=== PATIENT | female | born 1945 | race Caucasian/White ===

== ENCOUNTER 2017-10-08 07:19 | Inpatient (IN) | payer MEDICARE, BC ==
[~2017-10-08] VITALS: Ht 165.1 cm; Wt 68.0 kg
[2017-10-08] MEDS ORDERED: ONDANSETRON 4 MG/2 ML VIAL IM ONE (07:30)
[2017-10-08] MEDS ORDERED: HYDROMORPHONE 1 MG/1 ML DISP.SYRIN IM ONE (07:30)
[2017-10-08] MEDS ORDERED: DEXAMETHASONE SOD PHOSPHATE 4 MG INJ IM ONE (07:30)
[2017-10-08] MEDS ORDERED: DEXAMETHASONE SOD PHOSPHATE 4 MG INJ ONE (07:36)
[2017-10-08] MEDS ORDERED: ONDANSETRON 4 MG/2 ML VIAL ONE ×2 (07:37→09:48)
[2017-10-08] MEDS ORDERED: HYDROMORPHONE 2 MG/1 ML DISP.SYRIN ONE ×2 (07:37→08:53)
[2017-10-08] MEDS ORDERED: HYDROMORPHONE 1 MG/1 ML DISP.SYRIN IV ONE (09:00)
[2017-10-08] MEDS ORDERED: ONDANSETRON 4 MG/2 ML VIAL IV ONE (09:45)
[2017-10-08] MEDS ORDERED: FLUOXETINE (12:21)
[2017-10-08] MEDS ORDERED: TRAMADOL PO (12:21)
[2017-10-08] MEDS ORDERED: PREMARIN (12:21)
[2017-10-08] MEDS ORDERED: PREDNISONE PO (12:21)
[2017-10-08] MEDS ORDERED: RANITIDINE (12:21)
[2017-10-08 12:34] LABS: BASOPHILS % (AUTO) 0.3 % (0.0-2.0); EOSINOPHILS % (AUTO) 0.1 % (0.0-7.0); HEMATOCRIT 41.6 % (31.2-41.9); HEMOGLOBIN 14.4 g/dL (10.9-14.3); LYMPHOCYTES # (AUTO) 0.8 K/uL (20.0-40.0); LYMPHOCYTES % (AUTO) 7.9 % (20.5-51.5); MEAN CORPUSCULAR HEMOGLOBIN 32.9 uug (24.7-32.8); MEAN CORPUSCULAR HGB CONC 35 g/dL (32.3-35.6); MEAN CORPUSCULAR VOLUME 94.8 fL (75.5-95.3); MONOCYTES # (AUTO) 0.2 K/uL (2.0-10.0); MONOCYTES % (AUTO) 2.5 % (0.0-11.0); NEUTROPHILS # (AUTO) 8.6 K/uL (1.8-8.9); NEUTROPHILS % (AUTO) 89.2 % (38.5-71.5); PLATELET COUNT (AUTO) 397 K/uL (179-408); RED BLOOD CELL COUNT(AUTO) 4.39 MIL/uL (3.63-4.92); WHITE BLOOD COUNT (AUTO) 9.6 K/uL (3.8-11.8)
[2017-10-08 12:39] LABS: CARBON DIOXIDE 34 mmol/L (21-32); CHLORIDE 102 mmol/L (98-107); CREATININE 0.7 mg/dL (0.6-1.3); GLUCOSE 122 mg/dL (74-106); POTASSIUM 4.3 mmol/L (3.5-5.1); UREA NITROGEN, BLOOD 14 mg/dL (7-18)
[2017-10-08 12:45] LABS: ALANINE AMINOTRANSFERASE 22 U/L (14-59); ALKALINE PHOSPHATASE 88 U/L (50-136); ASPARTATE AMINOTRANSFERASE 14 U/L (15-37); BILIRUBIN,DIRECT 0.2 mg/dL (0.0-0.2); BILIRUBIN,TOTAL 0.7 mg/dL (0.2-1.0); TOTAL PROTEIN, SERUM 7.2 g/dL (6.4-8.2)
[2017-10-08 15:42] VITALS: BP 145/70
[2017-10-08] MEDS: ONDANSETRON 4 MG/2 ML VIAL IV PRN ×3 (17:21→19:03)
[2017-10-08] MEDS ORDERED: ACETAMINOPHEN 325 MG TABLET PO PRN (18:00)
[2017-10-08] MEDS ORDERED: CARISOPRODOL 350 MG TABLET PO PRN (18:00)
[2017-10-08] MEDS ORDERED: MAGNESIUM HYDROXIDE 30 ML LIQUID UDC PO PRN (18:00)
[2017-10-08] MEDS ORDERED: MORPHINE SULFATE 2 MG/1 ML DISP.SYRIN IV PRN (18:00)
[2017-10-08] MEDS ORDERED: MORPHINE SULFATE 4 MG/1 ML DISP.SYRIN IV PRN (18:15)
[2017-10-08] MEDS: predniSONE 10 MG TABLET PO SCH (18:29)
[2017-10-08] MEDS: HYDROCODONE/APAP 5-325MG TABLET PO PRN ×2 (18:29→23:00)
[2017-10-08 20:00] VITALS: BP 135/68
[2017-10-08] MEDS: DOCUSATE SODIUM 100 MG CAPSULE PO SCH (20:13)
[2017-10-09 04:34] VITALS: BP 104/45
[2017-10-09] MEDS: HYDROCODONE/APAP 5-325MG TABLET PO PRN ×4 (05:18→15:48)
[2017-10-09] MEDS: PANTOPRAZOLE SODIUM 40 MG TABLET.DR PO SCH (06:06)
[2017-10-09 07:52] LABS: BASOPHILS % (AUTO) 0.2 % (0.0-2.0); EOSINOPHILS % (AUTO) 0.1 % (0.0-7.0); HEMATOCRIT 39.1 % (31.2-41.9); HEMOGLOBIN 13.2 g/dL (10.9-14.3); LYMPHOCYTES # (AUTO) 1.2 K/uL (20.0-40.0); LYMPHOCYTES % (AUTO) 10.4 % (20.5-51.5); MEAN CORPUSCULAR HGB CONC 34 g/dL (32.3-35.6); MEAN CORPUSCULAR VOLUME 95.1 fL (75.5-95.3); MONOCYTES # (AUTO) 0.7 K/uL (2.0-10.0); MONOCYTES % (AUTO) 6.6 % (0.0-11.0); NEUTROPHILS # (AUTO) 9.3 K/uL (1.8-8.9); NEUTROPHILS % (AUTO) 82.7 % (38.5-71.5); PLATELET COUNT (AUTO) 394 K/uL (179-408); RED BLOOD CELL COUNT(AUTO) 4.11 MIL/uL (3.63-4.92); WHITE BLOOD COUNT (AUTO) 11.2 K/uL (3.8-11.8)
[2017-10-09 08:01] LABS: ALANINE AMINOTRANSFERASE 14 U/L (14-59); ALKALINE PHOSPHATASE 70 U/L (50-136); ASPARTATE AMINOTRANSFERASE 15 U/L (15-37); BILIRUBIN,TOTAL 0.8 mg/dL (0.2-1.0); CARBON DIOXIDE 32 mmol/L (21-32); CHLORIDE 101 mmol/L (98-107); CHOLESTEROL 168 mg/dL (<200); CREATININE 0.7 mg/dL (0.6-1.3); GLUCOSE 86 mg/dL (74-106); HDL CHOLESTEROL 48 mg/dL (40-60); MAGNESIUM 2.1 mg/dL (1.8-2.4); POTASSIUM 3.6 mmol/L (3.5-5.1); TOTAL PROTEIN, SERUM 6.2 g/dL (6.4-8.2); TRIGLYCERIDES 61 MG/DL (30-150); UREA NITROGEN, BLOOD 13 mg/dL (7-18)
[2017-10-09 08:09] LABS: THYROID STIMULATING HORMONE 1.126 mIU/mL (0.358-3.740)
[2017-10-09 08:16] LABS: PHOSPHOROUS 3.9 mg/dL (2.5-4.9)
[2017-10-09] MEDS: predniSONE 10 MG TABLET PO SCH (10:50)
[2017-10-09 11:08] VITALS: BP 116/55
[2017-10-09 15:09] VITALS: BP 113/55
[2017-10-09] MEDS ORDERED: MORPHINE SULFATE 4 MG/1 ML DISP.SYRIN IV PRN (16:30)
[2017-10-09] MEDS: KETOROLAC TROMETHAMINE 15 MG INJ IVP PRN (16:57)
[2017-10-09] MEDS: MORPHINE SULFATE 4 MG/1 ML DISP.SYRIN IV PRN ×2 (18:08→21:24)
[2017-10-09 20:00] VITALS: BP 129/59
[2017-10-09] MEDS: DOCUSATE SODIUM 100 MG CAPSULE PO SCH (20:00)
[2017-10-10] MEDS: MORPHINE SULFATE 4 MG/1 ML DISP.SYRIN IV PRN ×2 (04:28→11:00)
[2017-10-10 04:36] VITALS: BP 120/61
[2017-10-10] MEDS: PANTOPRAZOLE SODIUM 40 MG TABLET.DR PO SCH (06:12)
[2017-10-10] MEDS: KETOROLAC TROMETHAMINE 15 MG INJ IVP PRN (07:55)
[2017-10-10] MEDS: predniSONE 10 MG TABLET PO SCH (08:00)
[2017-10-10 11:07] VITALS: BP 119/58
== END 2017-10-10 14:30 | disposition left against medical advice (07) | DRG 552 ==
LOC: ER 07:19 → MED 14:46
PROVIDERS: ADMIT Internal Medicine; ATTEND Internal Medicine
DX: M51.17 Intervertebral disc disorders with radiculopathy, lumbosacral region (principal); E78.5 Hyperlipidemia, unspecified; M48.061 Spinal stenosis, lumbar region without neurogenic claudication; K21.9 Gastro-esophageal reflux disease without esophagitis; Z90.710 Acquired absence of both cervix and uterus; M77.8 Other enthesopathies, not elsewhere classified; M46.06 Spinal enthesopathy, lumbar region; J45.909 Unspecified asthma, uncomplicated; I51.7 Cardiomegaly
CPT/HCPCS: 36415; 71045; 72131; 83735; 84100; 84443; 85025; 86140; 93005; 97165; A4663; J1100; J1170; J1885; J2270; J2405; J7030; J7512